=== PATIENT | female | born 1975 | race Two or more races ===

== ENCOUNTER 2022-06-21 17:52 | Emergency (ER) | payer OTHER ==
[~2022-06-21] VITALS: Ht 160 cm; Wt 54.5 kg
[2022-06-21 20:52] VITALS: BP 130/90
[2022-06-21] MEDS ORDERED: CLAR250T39 PO (21:13)
[2022-06-21] MEDS ORDERED: SULF-261 PO (21:14)
[2022-06-21] MEDS ORDERED: ACETAMINOPHEN 325 MG TABLET PO ONE (21:15)
== END 2022-06-21 22:28 ==
LOC: EMS 18:01
DX: L02.415 Cutaneous abscess of right lower limb (principal); L03.115 Cellulitis of right lower limb; Z98.890 Other specified postprocedural states
CPT/HCPCS: 99283

== ENCOUNTER 2022-06-26 15:01 | Inpatient (IN) | payer OTHER ==
[~2022-06-26] VITALS: Ht 154.9 cm; Wt 60.1 kg
[~2022-06-26 15:01] MED LIST: CLAR250T39 PO; SULF-261 PO
[2022-06-26] MEDS ORDERED: MAGNESIUM HYDROXIDE SUSPENSION 30 ML UDCUP PO PRN (18:00)
[2022-06-26] MEDS ORDERED: ONDANSETRON HCL 4 MG/2 ML VIAL IVP PRN (18:00)
[2022-06-26 18:09] LABS: ANION GAP 8 mmol/L (8-16); CALCIUM, TOTAL 8.8 mg/dL (8.8-10.5); CARBON DIOXIDE 27 mmol/L (22-29); CHLORIDE 103 mmol/L (98-107); CREATININE 0.73 mg/dL (0.60-1.30); GLOMERULAR FILTR. RATE CALC > 60 mL/min (>60); GLUCOSE,RANDOM 86 mg/dL (70-110); POTASSIUM 4.3 mmol/L (3.5-5.1); SODIUM SERUM 138 mmol/L (136-145); UREA NITROGEN, BLOOD 10 mg/dL (7-18)
[2022-06-26 18:15] LABS: ALANINE AMINOTRANSFERASE 41 U/L (12-78); ALBUMIN 4.1 g/dL (3.4-5.0); ALKALINE PHOSPHATASE 104 U/L (46-116); ASPARTATE AMINOTRANSFERASE 28 U/L (15-37); BILIRUBIN,TOTAL 0.3 mg/dL (0.1-1.0); C-REACTIVE PROTEIN QUANT 0.09 mg/dL (0.00-0.30); TOTAL PROTEIN, SERUM 7.6 g/dL (6.4-8.2)
[2022-06-26 18:31] VITALS: BP 139/91
[2022-06-26 18:52] LABS: BASOPHILS % (AUTO) 0.6 % (0.0-2.0); EOSINOPHILS % (AUTO) 1.2 % (1.0-6.0); HEMATOCRIT 33.2 % (36-46); HEMOGLOBIN 10.6 g/dL (12.0-16.0); LYMPHOCYTES # (AUTO) 1.8 K/uL (1.0-4.8); LYMPHOCYTES % (AUTO) 27.7 % (22.0-44.0); MEAN CORPUSCULAR HEMOGLOBIN 26.3 pg (26.0-34.0); MEAN CORPUSCULAR VOLUME 82 fL (80-100); MONOCYTES # (AUTO) 0.6 K/uL (0.1-1.0); NEUTROPHILS % (AUTO) 61.5 % (40.0-70.0); PLATELET COUNT (AUTO) 188 K/uL (150-450); RED BLOOD CELL COUNT(AUTO) 4.05 MIL/uL (4.00-5.20); RED CELL DISTRIBUTION WIDTH 20.1 % (11.5-14.5)
[2022-06-26 19:35] VITALS: BP 129/80
[2022-06-26 19:37] LABS: LACTIC ACID 1.5 mmol/L (0.4-2.0)
[2022-06-26 19:56] LABS: ERYTHROCYTE SEDIMENTATION RATE 15 MM/HR (0-20)
[2022-06-26] MEDS: ZOLPIDEM TARTRATE 5 MG TABLET PO PRN (20:05)
[2022-06-26] MEDS: ACETAMINOPHEN 325 MG TABLET PO PRN (20:06)
[2022-06-26 20:53] LABS: APPEARANCE,URINE CLEAR (CLEAR); BILIRUBIN,URINE NEGATIVE (NEGATIVE); GLUCOSE, URINE (UA) NEGATIVE (NEGATIVE); KETONES,URINE NEGATIVE (NEGATIVE); LEUKOCYTE ESTERASE ,URINE NEGATIVE (NEGATIVE); NITRATE,URINE NEGATIVE (NEGATIVE); OCCULT BLOOD,URINE NEGATIVE (NEGATIVE); PROTEIN,URINE NEGATIVE (NEGATIVE); SPECIFIC GRAVITIY, URINE 1.017 (1.003-1.030); UROBILINOGEN,URINE <=1.0 mg/dL (<=1.0)
[2022-06-26 21:30] LABS: COVID AG,FIA SOURCE NASAL SWAB
[2022-06-27 03:56] VITALS: BP 128/80
[2022-06-27] MEDS: ACETAMINOPHEN 325 MG TABLET PO PRN ×3 (04:08→19:55)
[2022-06-27 07:32] VITALS: BP 137/69
[2022-06-27] MEDS: FAMOTIDINE 20 MG TABLET PO SCH (08:36)
[2022-06-27 15:23] VITALS: BP 123/67
[2022-06-27 19:39] VITALS: BP 117/87
[2022-06-27] MEDS: ZOLPIDEM TARTRATE 5 MG TABLET PO PRN (19:57)
[2022-06-27 20:21] VITALS: BP 126/79
[2022-06-28] MEDS: FAMOTIDINE 20 MG TABLET PO SCH (07:57)
[2022-06-28] MEDS: ACETAMINOPHEN 325 MG TABLET PO PRN ×2 (08:03→20:17)
[2022-06-28 08:11] VITALS: BP 144/84
[2022-06-28] MEDS ORDERED: BENZOCAINE/MENTHOL LOZENGE PO PRN (10:00)
[2022-06-28] MEDS ORDERED: BENZOCAINE/MENTHOL LOZENGE [6 LOZENGES/PACKET] PO PRN (10:15)
[2022-06-28] MEDS ORDERED: SODIUM CHLORIDE 0.9% 1,000 ML IV ONE (10:30)
[2022-06-28] MEDS ORDERED: IOHEXOL 350 MG/ML 100 ML VIAL ONE (12:00)
[2022-06-28] MEDS ORDERED: SODIUM CHLORIDE 0.9% 100 ML ONE (12:00)
[2022-06-28 15:39] VITALS: BP 120/65
[2022-06-28] MEDS: MUPIROCIN CALCIUM 2% 22 GM OINTMENT TP SCH ×2 (15:43→20:17)
[2022-06-28] MEDS: CHLORHEXIDINE GLUCONATE 4% 118 ML TOPICAL LIQUID TP SCH ×2 (15:43→20:16)
[2022-06-28] MEDS: NYSTATIN 30 GM CREAM TP SCH ×2 (15:43→20:17)
[2022-06-28 20:01] VITALS: BP 128/81
[2022-06-28] MEDS: ZOLPIDEM TARTRATE 5 MG TABLET PO PRN (20:17)
[2022-06-29 05:03] VITALS: BP 125/82
[2022-06-29] MEDS: FAMOTIDINE 20 MG TABLET PO SCH (08:02)
[2022-06-29] MEDS: MUPIROCIN CALCIUM 2% 22 GM OINTMENT TP SCH ×2 (08:03→21:15)
[2022-06-29 08:04] VITALS: BP 147/96
[2022-06-29] MEDS: NYSTATIN 30 GM CREAM TP SCH ×2 (08:05→21:16)
[2022-06-29] MEDS: CHLORHEXIDINE GLUCONATE 4% 118 ML TOPICAL LIQUID TP SCH ×2 (08:05→21:14)
[2022-06-29 19:40] VITALS: BP 142/88
[2022-06-29] MEDS: ZOLPIDEM TARTRATE 5 MG TABLET PO PRN (21:13)
[2022-06-29] MEDS: ACETAMINOPHEN 325 MG TABLET PO PRN (21:13)
[2022-06-30 03:50] VITALS: BP 119/75
[2022-06-30] MEDS: ACETAMINOPHEN 325 MG TABLET PO PRN ×2 (06:28→20:26)
[2022-06-30 08:48] VITALS: BP 118/87
[2022-06-30] MEDS: CHLORHEXIDINE GLUCONATE 4% 118 ML TOPICAL LIQUID TP SCH ×2 (09:22→20:27)
[2022-06-30] MEDS: MUPIROCIN CALCIUM 2% 22 GM OINTMENT TP SCH ×2 (09:23→20:27)
[2022-06-30] MEDS: FAMOTIDINE 20 MG TABLET PO SCH (09:23)
[2022-06-30] MEDS: NYSTATIN 30 GM CREAM TP SCH ×2 (09:23→20:27)
[2022-06-30 20:00] VITALS: BP 125/86
[2022-06-30] MEDS: ZOLPIDEM TARTRATE 5 MG TABLET PO PRN (20:27)
[2022-07-01 04:35] VITALS: BP 141/93
[2022-07-01 07:42] VITALS: BP 133/86
[2022-07-01] MEDS ORDERED: MULTIVITAMINS WITH MINERALS, THERAPEUTIC TABLET PO SCH (09:00)
[2022-07-01] MEDS: FAMOTIDINE 20 MG TABLET PO SCH (09:04)
[2022-07-01] MEDS: MUPIROCIN CALCIUM 2% 22 GM OINTMENT TP SCH (09:05)
[2022-07-01] MEDS: NYSTATIN 30 GM CREAM TP SCH (09:05)
[2022-07-01] MEDS: CHLORHEXIDINE GLUCONATE 4% 118 ML TOPICAL LIQUID TP SCH (09:05)
[2022-07-01] MEDS ORDERED: CHLO3800 TP (09:51)
[2022-07-01 10:02] LABS: BASOPHILS % (AUTO) 0.5 % (0.0-2.0); EOSINOPHILS % (AUTO) 1.5 % (1.0-6.0); HEMATOCRIT 32.9 % (36-46); HEMOGLOBIN 10.7 g/dL (12.0-16.0); LYMPHOCYTES # (AUTO) 1.1 K/uL (1.0-4.8); LYMPHOCYTES % (AUTO) 21.3 % (22.0-44.0); MEAN CORPUSCULAR HEMOGLOBIN 26.7 pg (26.0-34.0); MEAN CORPUSCULAR HGB CONC 32.6 G/dL (31.0-37.0); MEAN CORPUSCULAR VOLUME 82 fL (80-100); MONOCYTES # (AUTO) 0.6 K/uL (0.1-1.0); MONOCYTES % (AUTO) 10.3 % (2.0-9.0); NEUTROPHILS # (AUTO) 3.6 K/uL (1.8-7.7); NEUTROPHILS % (AUTO) 66.4 % (40.0-70.0); PLATELET COUNT (AUTO) 197 K/uL (150-450); RED BLOOD CELL COUNT(AUTO) 4.02 MIL/uL (4.00-5.20); RED CELL DISTRIBUTION WIDTH 18.7 % (11.5-14.5)
[2022-07-01] MEDS ORDERED: MULT-248 PO (10:02)
[2022-07-01] MEDS ORDERED: MUPI1OIN5 TP (10:03)
[2022-07-01] MEDS ORDERED: NYST30CR9 TP (10:04)
[2022-07-01] MEDS ORDERED: ACET-2247 PO (10:05)
[2022-07-01] MEDS ORDERED: MAGN-169 PO (10:06)
[2022-07-01 10:15] LABS: ANION GAP 6 mmol/L (8-16); CALCIUM, TOTAL 8.9 mg/dL (8.8-10.5); CARBON DIOXIDE 27 mmol/L (22-29); CHLORIDE 103 mmol/L (98-107); CREATININE 0.71 mg/dL (0.60-1.30); GLOMERULAR FILTR. RATE CALC > 60 mL/min (>60); GLUCOSE,RANDOM 104 mg/dL (70-110); POTASSIUM 4.2 mmol/L (3.5-5.1); SODIUM SERUM 136 mmol/L (136-145); UREA NITROGEN, BLOOD 11 mg/dL (7-18)
== END 2022-07-01 13:15 | DRG 603 ==
LOC: EMS 15:02 → 6S 17:31
PROVIDERS: ADMIT Internal Medicine; ATTEND Internal Medicine
DX: L02.415 Cutaneous abscess of right lower limb (principal); L98.8 Other specified disorders of the skin and subcutaneous tissue; T81.89XA Other complications of procedures, not elsewhere classified, initial encounter; B35.6 Tinea cruris; Z20.822 Contact with and (suspected) exposure to COVID-19; Y83.8 Other surgical procedures as the cause of abnormal reaction of the patient, or of later complication, without mention of misadventure at the time of the procedure; Z79.2 Long term (current) use of antibiotics; Y92.89 Other specified places as the place of occurrence of the external cause
CPT/HCPCS: 74177; 80048; 80053; 81003; 83605; 84145; 84702; 85025; 85651; 86140; 87040; 87070; 87205; 99285; J7030; J7050; Q9967